=== PATIENT | male | born 1940 | race Caucasian/White ===

== ENCOUNTER 2019-01-01 10:32 | Emergency (ER) | payer MEDICARE ==
--- NOTE | 2019-01-01 11:10 | EDM.PDOC ---
ED HPI GENERAL MEDICAL PROBLEM - General Chief Complaint: Eye Problems Stated Complaint: EYE RED AND ITCHY Time Seen by Provider: 01/01/19 10:55 Source of Information: Reports: Patient History Limitations: Reports: No Limitations - History of Present Illness INITIAL COMMENTS - FREE TEXT/NARRATIVE: 78-year-old male with irritated reddened itchy eyes for the past 3 days. Started in his right eye and now both eyes are bothering him, he was rubbing them last night and had trouble getting to sleep. There was a small amount of matter present in both eyes this morning. No other symptoms, no nasal congestion , no shortness of breath or cough, no rash. Onset: Gradual Duration: Day(s): (3 days) Associated Symptoms: Reports: No Other Symptoms - Related Data Allergies Allergy/AdvReac Type Severity Reaction Status Date / Time No Known Allergies Allergy Verified 01/01/19 10:49 Home Meds: Home Meds Furosemide [Lasix] 20 mg PO DAILY 01/01/19 [History] Metoprolol Succinate [Toprol XL] 25 mg PO DAILY 01/01/19 [History] Pravastatin [Pravachol] 40 mg PO BEDTIME 01/01/19 [History] Past Medical History HEENT History: Reports: Impaired Vision Cardiovascular History: Reports: Arrhythmia, Heart Failure, High Cholesterol, Hypertension Oncologic (Cancer) History: Reports: Lymphoma - Past Surgical History GI Surgical History: Reports: Appendectomy Social & Family History - Tobacco Use Smoking Status *Q: Never Smoker - Caffeine Use Caffeine Use: Reports: Coffee - Recreational Drug Use Recreational Drug Use: No ED ROS GENERAL - Review of Systems Review Of Systems: See Below Constitutional: Denies: Fever, Chills HEENT: Reports: Eye Discharge, Eye Pain, Other (Eye erythema, itching) Respiratory: Denies: Shortness of Breath GI/Abdominal: Reports: No Symptoms Skin: Reports: No Symptoms Neurological: Reports: No Symptoms ED EXAM GENERAL W FULL EYE - Physical Exam Exam: See Below Exam Limited By: No Limitations General Appearance: Alert, No Apparent Distress Eye Exam: Bilateral Eye: Conjunctival Injection (Patient is a small amount of conjunctival injection bilaterally, no matter present at this time) Eyelids: Bilateral: Erythema (Mild erythema) Conjunctiva & Sclera: Bilateral: Conjunctival Edema Cornea Exam: Bilateral: Normal Appearance Extraocular Movements: Bilateral: Intact Head: Atraumatic Respiratory/Chest: No Respiratory Distress, Lungs Clear Course - Vital Signs Last Recorded V/S: Last Vital Signs Temp 94.8 F L 01/01/19 10:51 Pulse 82 01/01/19 10:51 Resp 13 01/01/19 10:51 BP 127/65 01/01/19 10:51 Pulse Ox 99 01/01/19 10:51 - Re-Assessments/Exams Free Text/Narrative Re-Assessment/Exam: 01/01/19 11:08 Patient appears to have some allergic conjunctivitis, unknown etiology. He'll be placed on Pred Forte eye drops 2 drops each eye 3 times a day for the next 5 days, and recheck with optometry in 2-4 days if not improving satisfactorily. I recommended [facility] here in [facility]. Departure - Departure Time of Disposition: 11:29 Disposition: Home, Self-Care 01 Condition: Good Clinical Impression: Allergic conjunctivitis Qualifiers: Laterality: bilateral Qualified Code(s): H10.13 - Acute atopic conjunctivitis, bilateral - Discharge Information Instructions: Allergic Conjunctivitis, Adult, [id number] Referrals: PCP,None [Primary Care Provider] - Forms: ED Department Discharge Care Plan Goals: Use 2 drops of medicine in each eye 3 times a day for the next 5 days. Consider rechecking with optometry in 2-3 days if not improving with the drops. Return sooner if worsening. Try [facility] here in [facility] for an eye recheck if not improving satisfactorily.
== END 2019-01-01 11:29 | disposition home or self-care (01) ==
LOC: JP.ED 10:32
DX: H10.13 Acute atopic conjunctivitis, bilateral (principal); I11.0 Hypertensive heart disease with heart failure; I50.9 Heart failure, unspecified; Z79.899 Other long term (current) drug therapy
CPT/HCPCS: 99282; 99283